=== PATIENT | female | born 1980 | race Caucasian/White ===

== ENCOUNTER 2018-02-07 12:40 | Emergency (ER) | payer SELFPAY ==
[~2018-02-07] VITALS: Ht 162.6 cm; Wt 93.9 kg
[2018-02-07 12:42] VITALS: BP 118/80
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
--- NOTE | 2018-02-07 12:58 | NUR ---
[place] PD ARRIVED TO SEE PT
[2018-02-07] MEDS ORDERED: IBUPROFEN 800 MG TAB PO ONE (13:20)
[2018-02-07 13:30] VITALS: BP 119/80
== END 2018-02-07 13:30 | disposition home or self-care (01) ==
LOC: MED 12:40
DX: S00.83XA Contusion of other part of head, initial encounter (principal); Y04.2XXA Assault by strike against or bumped into by another person, initial encounter; Y93.89 Activity, other specified; Y92.89 Other specified places as the place of occurrence of the external cause; Y99.8 Other external cause status
CPT/HCPCS: 99283